=== PATIENT | female | born 1995 | race African-American/Black ===

== ENCOUNTER 2016-11-21 03:07 | Emergency (ER) | payer SELFPAY ==
[~2016-11-21] VITALS: Ht 152.4 cm; Wt 68.0 kg
[~2016-11-21 03:07] MED LIST: AMOXICILLIN500 MG PO; AMOXIL500 MG PO; ANAPROX DS550 MG PO; CIPRO500 MG PO; CLARITIN10 MG PO; COLACE1 SUP RC; FLAGYL500 MG PO; IRON325 M1 PO; KEFLEX500 M1 PO; KEFLEX500 MG PO; MACROBID100 M1 PO; MONISTAT 3 COMB1 KI1; MOTRIN800 MG PO; MULTI VITAMINS1 CT1 PO; Motrin,Rufen800 MG PO; NKHM; PHENERGAN W/DM120 ML PO; PNV-SELECT1 TAB PO
[2016-11-21 03:38] LABS: BILIRUBIN NEGATIVE (NEGATIVE); BLOOD NEGATIVE (NEGATIVE); CLARITY CLEAR (CLEAR); COLOR YELLOW (YELLOW); GLUCOSE NEGATIVE (NEGATIVE); KETONE NEGATIVE (NEGATIVE); LEUKO ESTERASE NEGATIVE (NEGATIVE); NITRITE NEGATIVE (NEGATIVE); PROTEIN NEGATIVE (NEGATIVE); SPECIFIC GRAVITY <= 1.005 (1.005-1.030); UROBILINOGEN 0.2 E.U./dl (0.2-1.0)
[2016-11-21 03:44] LABS: BASO % 0.2 % (0.0-1.0); EOS # 0.1 10*3/uL (0.0-0.4); EOS % 1.6 % (1.0-4.0); HEMATOCRIT 32.3 % (37.0-47.0); HEMOGLOBIN 11.1 g/dl (12.0-16.0); LYMPH # 2.5 10*3/uL (1.3-4.4); LYMPH % 28.9 % (27.0-41.0); MEAN CORPUSCULAR HGB 30.9 pg (27.0-31.0); MEAN CORPUSCULAR HGB CONC 34.4 g/dl (33.0-37.0); MEAN PLATELET VOLUME 11.2 fl (9.6-12.3); MONO # 0.6 10*3/uL (0.1-1.0); MONO % 7.1 % (3.0-9.0); NEUT # 5.4 10*3/uL (2.3-7.9); NEUT % 61.9 % (47.0-73.0); PLATELET COUNT AUTOMATED 170 10*3/uL (130-400); RED BLOOD COUNT 3.59 10*6/uL (4.10-5.10); RED CELL DISTRI WIDTH 12.9 % (0-14.5); WHITE BLOOD COUNT 8.8 10*3/uL (4.8-10.8)
[2016-11-21 03:44] LABS: BACTERIA TRACE; RBC 0-2 rbc/hpf (0-2); URINE REFLEX COMMENT NO (NO); WBC 0-2 wbc/hpf (0-5)
[2016-11-21 04:00] LABS: ALBUMIN 2.8 gm/dl (3.1-4.5); ALKALINE PHOSPHATASE 61 U/L (45-117); BILIRUBIN, TOTAL 0.2 mg/dl (0.2-1.0); BUN 4 mg/dl (7-24); CARBON DIOXIDE 20 mmol/L (21-32); CHLORIDE 107 mmol/L (98-107); EST GLOM FILT AFRICAN AMERICAN > 60 ml/min; GLUCOSE 112 mg/dL (65-99); POTASSIUM 3.5 mmol/L (3.5-5.1); SGOT/AST 14 IU/L (3-35); SGPT/ALT 13 U/L (12-78); SODIUM 140 mmol/L (136-145)
[2016-11-21] MEDS ORDERED: AMOXICILLIN500 M2 PO (04:42)
== END 2016-11-21 04:54 | disposition home or self-care (01) ==
LOC: ED 03:07
PROVIDERS: Emergency Medicine
DX: O99.512 Diseases of the respiratory system complicating pregnancy, second trimester (principal); J40 Bronchitis, not specified as acute or chronic; F17.200 Nicotine dependence, unspecified, uncomplicated; Z3A.26 26 weeks gestation of pregnancy

== ENCOUNTER 2017-04-15 14:07 | Emergency (ER) | payer MEDICAID ==
[~2017-04-15] VITALS: Wt 63.5 kg
[~2017-04-15 14:07] MED LIST changes: +AMOXICILLIN500 M2 PO
[2017-04-15 14:23] LABS: BILIRUBIN NEGATIVE (NEGATIVE); BLOOD 3+ (NEGATIVE); CLARITY CLEAR (CLEAR); COLOR YELLOW (YELLOW); GLUCOSE NEGATIVE (NEGATIVE); KETONE NEGATIVE (NEGATIVE); LEUKO ESTERASE NEGATIVE (NEGATIVE); NITRITE NEGATIVE (NEGATIVE); PH 6.5 (5.0-9.0); UROBILINOGEN 0.2 E.U./dl (0.2-1.0)
[2017-04-15 14:31] LABS: BACTERIA TRACE
[2017-04-15 14:45] LABS: BASO % 0.3 % (0.0-1.0); EOS # 0.2 10*3/uL (0.0-0.4); EOS % 2.3 % (1.0-4.0); HEMATOCRIT 39.6 % (37.0-47.0); HEMOGLOBIN 13.2 g/dl (12.0-16.0); LYMPH # 2.6 10*3/uL (1.3-4.4); LYMPH % 39.8 % (27.0-41.0); MEAN CELL VOLUME 91.2 fl (81.0-99.0); MEAN CORPUSCULAR HGB 30.4 pg (27.0-31.0); MEAN CORPUSCULAR HGB CONC 33.3 g/dl (33.0-37.0); MEAN PLATELET VOLUME 10.6 fl (9.6-12.3); MONO # 0.3 10*3/uL (0.1-1.0); MONO % 4.3 % (3.0-9.0); NEUT # 3.5 10*3/uL (2.3-7.9); NEUT % 53.1 % (47.0-73.0); PLATELET COUNT AUTOMATED 272 10*3/uL (130-400); RED BLOOD COUNT 4.34 10*6/uL (4.10-5.10); RED CELL DISTRI WIDTH 13.6 % (0-14.5); WHITE BLOOD COUNT 6.6 10*3/uL (4.8-10.8)
[2017-04-15 15:00] LABS: ALBUMIN 3.5 gm/dl (3.1-4.5); ALKALINE PHOSPHATASE 77 U/L (45-117); BUN 6 mg/dl (7-24); CHLORIDE 105 mmol/L (98-107); CREATININE 0.63 mg/dL (0.55-1.02); LIPASE 121 U/L (73-393); POTASSIUM 3.9 mmol/L (3.5-5.1); SGOT/AST 16 IU/L (3-35); SGPT/ALT 18 U/L (12-78); SODIUM 138 mmol/L (136-145); TOTAL PROTEIN 7.9 gm/dL (6.4-8.2)
[2017-04-15 15:04] LABS: B-hCG (QUALITATIVE) NEGATIVE (NEGATIVE)
== END 2017-04-15 17:04 | disposition home or self-care (01) ==
LOC: ED 14:07
PROVIDERS: Physician Assistant
DX: R10.9 Unspecified abdominal pain (principal); F17.200 Nicotine dependence, unspecified, uncomplicated

== ENCOUNTER 2017-06-06 17:43 | Emergency (ER) | payer MEDICAID ==
[~2017-06-06] VITALS: Ht 154.9 cm; Wt 59.0 kg
[2017-06-06] MEDS ORDERED: PROAIR HFA8.5 GM INH (19:17)
[2017-06-06] MEDS ORDERED: ALLEGRA-D 24 H1 EACH PO (19:17)
[2017-06-06] MEDS ORDERED: TESSALON PERLE100 M1 PO (19:17)
[2017-06-06] MEDS ORDERED: FLONASE ALLERG9.9 ML NAS (19:17)
== END 2017-06-06 19:20 | disposition home or self-care (01) ==
LOC: ED 17:43
DX: B34.9 Viral infection, unspecified (principal); F17.200 Nicotine dependence, unspecified, uncomplicated

== ENCOUNTER → 2017-06-11 | Outpatient (CLI) | payer OTHER ==
[~2017-06-11] MED LIST changes: +ALLEGRA-D 24 H1 EACH PO; +FLONASE ALLERG9.9 ML NAS; +PROAIR HFA8.5 GM INH; +TESSALON PERLE100 M1 PO
[2017-06-12 08:15] LABS: HIV 1+2 AB + HIV1 P24 AG Non Reactive (Non Reactive)
[2017-06-12 09:08] LABS: HEPATITIS B SURFACE AG Negative (Negative)
[2017-06-15 17:10] LABS: HSV 2 IGM AB <1:10 titer (<1:10); HSV I IGM ABS <1:10 titer (<1:10)
== END | disposition home or self-care (01) ==
LOC: LAB 12:48
PROVIDERS: Obstetrics & Gynecology
DX: A64 Unspecified sexually transmitted disease (principal)

== ENCOUNTER 2017-11-17 00:40 | Emergency (ER) | payer OTHER ==
[~2017-11-17] VITALS: Ht 154.9 cm; Wt 59.0 kg
[2017-11-17 01:03] LABS: BILIRUBIN NEGATIVE (NEGATIVE); BLOOD NEGATIVE (NEGATIVE); CLARITY CLEAR (CLEAR); COLOR YELLOW (YELLOW); GLUCOSE NEGATIVE (NEGATIVE); KETONE NEGATIVE (NEGATIVE); LEUKO ESTERASE NEGATIVE (NEGATIVE); NITRITE NEGATIVE (NEGATIVE); SPECIFIC GRAVITY 1.025 (1.005-1.030)
[2017-11-17 01:10] LABS: BACTERIA 2+; MUCOUS TRACE; WBC 0-2 wbc/hpf (0-5)
[2017-11-17 01:24] LABS: BASO % 0.3 % (0.0-1.0); EOS # 0.1 10*3/uL (0.0-0.4); EOS % 1.4 % (1.0-4.0); HEMATOCRIT 36.8 % (37.0-47.0); HEMOGLOBIN 11.8 g/dl (12.0-16.0); LYMPH # 3.7 10*3/uL (1.3-4.4); LYMPH % 40.6 % (27.0-41.0); MEAN CELL VOLUME 92.5 fl (81.0-99.0); MEAN CORPUSCULAR HGB 29.6 pg (27.0-31.0); MEAN CORPUSCULAR HGB CONC 32.1 g/dl (33.0-37.0); MEAN PLATELET VOLUME 10.7 fl (9.6-12.3); MONO # 0.5 10*3/uL (0.1-1.0); MONO % 5.5 % (3.0-9.0); NEUT # 4.8 10*3/uL (2.3-7.9); PLATELET COUNT AUTOMATED 248 10*3/uL (130-400); RED BLOOD COUNT 3.98 10*6/uL (4.10-5.10); WHITE BLOOD COUNT 9.2 10*3/uL (4.8-10.8)
[2017-11-17 01:42] LABS: ALBUMIN 3.4 gm/dl (3.1-4.5); ALKALINE PHOSPHATASE 76 U/L (45-117); BUN 13 mg/dl (7-24); CHLORIDE 106 mmol/L (98-107); CREATININE 0.69 mg/dL (0.55-1.02); LIPASE 122 U/L (73-393); POTASSIUM 3.8 mmol/L (3.5-5.1); SGOT/AST 12 IU/L (3-35); SGPT/ALT 12 U/L (12-78); SODIUM 138 mmol/L (136-145); TOTAL PROTEIN 7.1 gm/dL (6.4-8.2)
[2017-11-17] MEDS ORDERED: KETOROLAC10 MG PO (02:39)
== END 2017-11-17 02:38 | disposition home or self-care (01) ==
LOC: ED 00:40
PROVIDERS: Emergency Medicine Emergency Medical Services
DX: R10.2 Pelvic and perineal pain (principal); F17.200 Nicotine dependence, unspecified, uncomplicated; Z79.899 Other long term (current) drug therapy

== ENCOUNTER 2018-03-08 13:30 | Emergency (ER) | payer OTHER ==
[~2018-03-08] VITALS: Ht 152.4 cm; Wt 59.0 kg
--- NOTE | ~2018-03-08 | EKG ---
[place], [place] ELECTROCARDIOGRAM REPORT NAME: JONATHAN JO UNIT #: [id number] ROOM: DOCTOR: EPIPHANY DRAFT REPORT BIRTHDATE: [birth year] [facility] Test Date: 2018-03-08 Test Time: 14:28:10 Pat Name: JONATHAN JO Department: Room: Gender: F Professor Of Economics: Sana Mcgarry : 1995 Requested By: TAMMI CORONADO PA-C Order Number: [id number] Reading MD: Willi Montoya MD Measurements Intervals [place] Rate: 51 P: 12 AL: 132 QRS: 12 QRSD: 79 T: 25 QT: 416 QTc: 384 Interpretive Statements Sinus rhythm No previous ECG available for comparison Electronically Signed On 03-09-2018 4:16:38 PDT by Willi Montoya MD CM:EKGRPT:ELECTROCARDIOGRAM REPORT [id number] TAMMI CORONADO PA-C EPIPHANY DRAFT REPORT TAMMI CORONADO PA-C
[~2018-03-08 13:30] MED LIST changes: +KETOROLAC10 MG PO
[2018-03-08 14:30] LABS: BILIRUBIN NEGATIVE (NEGATIVE); BLOOD NEGATIVE (NEGATIVE); CLARITY CLEAR (CLEAR); COLOR YELLOW (YELLOW); GLUCOSE NEGATIVE (NEGATIVE); KETONE NEGATIVE (NEGATIVE); LEUKO ESTERASE TRACE (NEGATIVE); NITRITE NEGATIVE (NEGATIVE); SPECIFIC GRAVITY <= 1.005 (1.005-1.030); UROBILINOGEN 0.2 E.U./dl (0.2-1.0)
[2018-03-08 14:35] LABS: BACTERIA 2+; RBC 0-2 rbc/hpf (0-2)
[2018-03-08 14:46] LABS: BASO % 0.3 % (0.0-1.0); EOS # 0.1 10*3/uL (0.0-0.4); EOS % 2.2 % (1.0-4.0); HEMATOCRIT 37.3 % (37.0-47.0); HEMOGLOBIN 12.7 g/dl (12.0-16.0); LYMPH # 2.8 10*3/uL (1.3-4.4); LYMPH % 43.4 % (27.0-41.0); MEAN CELL VOLUME 91.2 fl (81.0-99.0); MEAN CORPUSCULAR HGB 31.1 pg (27.0-31.0); MEAN PLATELET VOLUME 10.6 fl (9.6-12.3); MONO # 0.4 10*3/uL (0.1-1.0); MONO % 5.8 % (3.0-9.0); NEUT # 3.1 10*3/uL (2.3-7.9); NEUT % 48.1 % (47.0-73.0); PLATELET COUNT AUTOMATED 252 10*3/uL (130-400); RED BLOOD COUNT 4.09 10*6/uL (4.10-5.10); RED CELL DISTRI WIDTH 12.6 % (0-14.5); WHITE BLOOD COUNT 6.3 10*3/uL (4.8-10.8)
[2018-03-08 15:02] LABS: ALBUMIN 3.7 gm/dl (3.1-4.5); ALKALINE PHOSPHATASE 64 U/L (45-117); BUN 5 mg/dl (7-24); CHLORIDE 110 mmol/L (98-107); CREATININE 0.61 mg/dL (0.55-1.02); POTASSIUM 3.7 mmol/L (3.5-5.1); SGOT/AST 14 IU/L (3-35); SGPT/ALT 17 U/L (12-78); SODIUM 141 mmol/L (136-145); TOTAL PROTEIN 7.9 gm/dL (6.4-8.2)
[2018-03-08 15:07] LABS: TROPONIN I < 0.015 ng/ml (<0.045)
[2018-03-08 16:04] LABS: URINE AMPHETAMINES < 1000 (1000ng/ml); URINE BARBITURATES < 200 (200ng/ml); URINE BENZODIAZEPINES > 200 (200ng/ml); URINE CANNABINOIDS (THC) > 50 (50ng/ml); URINE COCAINE > 300 (300ng/ml); URINE METHADONE < 300 (300ng/ml); URINE OPIATES < 300 (300ng/ml); URINE PHENCYCLIDINE < 25 (25ng/ml)
[2018-03-08] MEDS ORDERED: ATIVAN1 MG PO (16:23)
== END 2018-03-08 16:31 | disposition home or self-care (01) ==
LOC: ED 13:30
PROVIDERS: Physician Assistant
DX: F41.9 Anxiety disorder, unspecified (principal)

== ENCOUNTER 2018-12-28 18:18 | Emergency (ER) | payer OTHER ==
[~2018-12-28] VITALS: Ht 152.4 cm; Wt 54.4 kg
[~2018-12-28 18:18] MED LIST changes: +ATIVAN1 MG PO
[2018-12-28] MEDS ORDERED: ZYRTEC10 MG PO (19:36)
[2018-12-28] MEDS ORDERED: AMOXICILLIN500 M2 PO (19:36)
== END 2018-12-28 19:51 ==
LOC: ED 18:18
DX: J02.9 Acute pharyngitis, unspecified (principal); H92.03 Otalgia, bilateral; R51 Headache

== ENCOUNTER 2019-01-26 00:24 | Emergency (ER) | payer OTHER ==
[~2019-01-26] VITALS: Ht 152.4 cm; Wt 52.6 kg
[~2019-01-26 00:24] MED LIST changes: +ZYRTEC10 MG PO
[2019-01-26 01:00] LABS: BILIRUBIN NEGATIVE (NEGATIVE); BLOOD NEGATIVE (NEGATIVE); CLARITY SL CLOUDY (CLEAR); COLOR YELLOW (YELLOW); GLUCOSE NEGATIVE (NEGATIVE); KETONE TRACE (NEGATIVE); LEUKO ESTERASE NEGATIVE (NEGATIVE); NITRITE NEGATIVE (NEGATIVE); SPECIFIC GRAVITY 1.015 (1.005-1.030)
[2019-01-26 01:10] LABS: BACTERIA 1+
[2019-01-26] MEDS ORDERED: SEPTDS PO (01:13)
== END 2019-01-26 01:56 | disposition home or self-care (01) ==
LOC: ED 00:24
PROVIDERS: Student in an Organized Health Care Education/Training Program
DX: N39.0 Urinary tract infection, site not specified (principal)

== ENCOUNTER 2019-02-14 16:25 | Emergency (ER) | payer OTHER ==
[~2019-02-14] VITALS: Ht 152.4 cm; Wt 52.6 kg
[~2019-02-14 16:25] MED LIST changes: +SEPTDS PO
[2019-02-14 17:02] LABS: BILIRUBIN NEGATIVE (NEGATIVE); BLOOD NEGATIVE (NEGATIVE); CLARITY CLEAR (CLEAR); COLOR YELLOW (YELLOW); GLUCOSE NEGATIVE (NEGATIVE); KETONE NEGATIVE (NEGATIVE); LEUKO ESTERASE NEGATIVE (NEGATIVE); NITRITE NEGATIVE (NEGATIVE); SPECIFIC GRAVITY 1.015 (1.005-1.030)
[2019-02-14 17:19] LABS: BACTERIA TRACE; EPITHELIAL CELLS 31-40; WBC 0-2 wbc/hpf (0-5)
== END 2019-02-14 17:27 | disposition home or self-care (01) ==
LOC: ED 16:25
PROVIDERS: Nurse Practitioner Family
DX: Z20.2 Contact with and (suspected) exposure to infections with a predominantly sexual mode of transmission (principal)

== ENCOUNTER 2019-04-11 21:47 | Emergency (ER) | payer OTHER ==
[~2019-04-11] VITALS: Ht 152.4 cm; Wt 52.2 kg
--- NOTE | ~2019-04-11 | EKG ---
[place], [place] ELECTROCARDIOGRAM REPORT NAME: JONATHAN JO UNIT #: [id number] ROOM: DOCTOR: EPIPHANY DRAFT REPORT BIRTHDATE: [birth year] [facility] Test Date: 2019-04-11 Test Time: 22:11:52 Pat Name: JONATHAN JO Department: ER Room: 7 Gender: F [employer] Operator: Marck Weldon : 1995 Requested By: COURTNEY MOREJON DNP Order Number: [id number] Reading MD: Willi Montoya MD Measurements Intervals [place] Rate: 58 P: 21 NC: 132 QRS: 20 QRSD: 75 T: 35 QT: 381 QTc: 375 Interpretive Statements Sinus rhythm Compared to ECG 03/08/2018 14:28:10 No significant changes Electronically Signed On 04-12-2019 4:29:21 PST by Willi Montoya MD CM:EKGRPT:ELECTROCARDIOGRAM REPORT 0429 COURTNEY MOREJON DNP EPIPHANY DRAFT REPORT COURTNEY MOREJON DNP
[2019-04-11 22:28] LABS: BASO % 0.5 % (0.0-1.0); EOS # 0.1 10*3/uL (0.0-0.4); EOS % 1.3 % (1.0-4.0); HEMATOCRIT 36.2 % (37.0-47.0); HEMOGLOBIN 12.1 g/dl (12.0-16.0); LYMPH # 4.1 10*3/uL (1.3-4.4); LYMPH % 48.5 % (27.0-41.0); MEAN CELL VOLUME 93.8 fl (81.0-99.0); MEAN CORPUSCULAR HGB 31.3 pg (27.0-31.0); MEAN CORPUSCULAR HGB CONC 33.4 g/dl (33.0-37.0); MEAN PLATELET VOLUME 10.3 fl (9.6-12.3); MONO # 0.5 10*3/uL (0.1-1.0); NEUT # 3.7 10*3/uL (2.3-7.9); NEUT % 43.6 % (47.0-73.0); PLATELET COUNT AUTOMATED 263 10*3/uL (130-400); RED BLOOD COUNT 3.86 10*6/uL (4.10-5.10); RED CELL DISTRI WIDTH 12.7 % (0-14.5); WHITE BLOOD COUNT 8.5 10*3/uL (4.8-10.8)
[2019-04-11 22:49] LABS: ALBUMIN 3.4 gm/dl (3.1-4.5); ALKALINE PHOSPHATASE 77 U/L (45-117); BUN 8 mg/dl (7-24); CHLORIDE 109 mmol/L (98-107); CREATININE 0.69 mg/dL (0.55-1.02); POTASSIUM 3.5 mmol/L (3.5-5.1); SGOT/AST 14 IU/L (3-35); SGPT/ALT 15 U/L (12-78); SODIUM 139 mmol/L (136-145); TOTAL PROTEIN 7.1 gm/dL (6.4-8.2)
[2019-04-11 22:51] LABS: TROPONIN I < 0.015 ng/ml (<0.045)
== END 2019-04-11 23:14 | disposition home or self-care (01) ==
LOC: ED 21:47
PROVIDERS: Nurse Practitioner Family
DX: K21.9 Gastro-esophageal reflux disease without esophagitis (principal); M79.602 Pain in left arm; R07.9 Chest pain, unspecified; F41.9 Anxiety disorder, unspecified; F32.9 Major depressive disorder, single episode, unspecified

== ENCOUNTER 2019-05-15 08:54 | Emergency (ER) | payer OTHER ==
[~2019-05-15] VITALS: Ht 152.4 cm; Wt 56.2 kg
[2019-05-15 09:34] LABS: BILIRUBIN NEGATIVE (NEGATIVE); BLOOD NEGATIVE (NEGATIVE); CLARITY CLEAR (CLEAR); COLOR YELLOW (YELLOW); GLUCOSE NEGATIVE (NEGATIVE); KETONE NEGATIVE (NEGATIVE); LEUKO ESTERASE NEGATIVE (NEGATIVE); NITRITE NEGATIVE (NEGATIVE); PH 8.5 (5.0-9.0); UROBILINOGEN 0.2 E.U./dl (0.2-1.0)
[2019-05-15 09:42] LABS: BACTERIA TRACE; RBC 0-2 rbc/hpf (0-2); WBC 0-2 wbc/hpf (0-5)
[2019-05-15] MEDS ORDERED: ROBITUSSIN DM 105 ML PO (17:43)
[2019-05-15] MEDS ORDERED: PREDNISONE50 MG PO (17:43)
[2019-05-15] MEDS ORDERED: ZITHROMAX250 MG PO (17:43)
== END 2019-05-15 09:38 | disposition home or self-care (01) ==
LOC: ED 08:54
PROVIDERS: Emergency Medicine
DX: J06.9 Acute upper respiratory infection, unspecified (principal); K21.9 Gastro-esophageal reflux disease without esophagitis; Z88.8 Allergy status to other drugs, medicaments and biological substances

== ENCOUNTER 2019-05-15 17:06 | Emergency (ER) | payer OTHER ==
[~2019-05-15] VITALS: Wt 55.8 kg
[2019-05-15] MEDS ORDERED: ROBITUSSIN DM 105 ML PO (17:43)
[2019-05-15] MEDS ORDERED: ZITHROMAX250 MG PO (17:43)
[2019-05-15] MEDS ORDERED: PREDNISONE50 MG PO (17:43)
== END 2019-05-15 17:55 | disposition home or self-care (01) ==
LOC: ED 17:06
DX: J20.9 Acute bronchitis, unspecified (principal); F17.200 Nicotine dependence, unspecified, uncomplicated; Z88.8 Allergy status to other drugs, medicaments and biological substances

== ENCOUNTER → 2019-10-07 | Outpatient (CLI) | payer OTHER ==
[~2019-10-07] MED LIST changes: +PREDNISONE50 MG PO; +ROBITUSSIN DM 105 ML PO; +ZITHROMAX250 MG PO
== END | disposition home or self-care (01) ==
LOC: US 12:54
DX: O26.891 Other specified pregnancy related conditions, first trimester (principal); R10.2 Pelvic and perineal pain; Z3A.00 Weeks of gestation of pregnancy not specified

== ENCOUNTER 2020-07-16 14:57 | Emergency (ER) | payer OTHER ==
[~2020-07-16] VITALS: Wt 77.1 kg
[2020-07-16 15:51] LABS: BASO % 0.2 % (0.0-1.0); EOS # 0.2 10*3/uL (0.0-0.4); EOS % 1.4 % (1.0-4.0); LYMPH # 2.6 10*3/uL (1.3-4.4); LYMPH % 23.5 % (27.0-41.0); MEAN CELL VOLUME 92.5 fl (81.0-99.0); MEAN CORPUSCULAR HGB 29.5 pg (27.0-31.0); MEAN CORPUSCULAR HGB CONC 31.9 g/dl (33.0-37.0); MEAN PLATELET VOLUME 10.2 fl (9.6-12.3); MONO # 0.5 10*3/uL (0.1-1.0); MONO % 4.6 % (3.0-9.0); NEUT # 7.8 10*3/uL (2.3-7.9); NEUT % 69.9 % (47.0-73.0); PLATELET COUNT AUTOMATED 299 10*3/uL (130-400); RED BLOOD COUNT 4.54 10*6/uL (4.10-5.10); RED CELL DISTRI WIDTH 13.2 % (0-14.5); WHITE BLOOD COUNT 11.1 10*3/uL (4.8-10.8)
[2020-07-16 15:55] LABS: BILIRUBIN Negative (Negative); BLOOD Negative (Negative); CLARITY Clear (Clear); COLOR Yellow (Yellow); GLUCOSE Negative (Negative); KETONE Negative (Negative); LEUKO ESTERASE Trace (Negative); NITRITE Negative (Negative); SPECIFIC GRAVITY 1.015 (1.001-1.030); UROBILINOGEN 0.2 E.U./dl (0.0-1.0)
[2020-07-16 16:07] LABS: ALBUMIN 3.4 gm/dl (3.1-4.5); ALKALINE PHOSPHATASE 104 U/L (45-117); BUN 10 mg/dl (7-24); CHLORIDE 107 mmol/L (98-107); CREATININE 0.66 mg/dL (0.55-1.02); LIPASE 101 U/L (73-393); SGOT/AST 78 IU/L (3-35); SGPT/ALT 49 U/L (12-78); SODIUM 138 mmol/L (136-145)
[2020-07-16 16:11] LABS: BETA-HCG, QUANT < 1.0 mIU/mL (1-3)
[2020-07-16 16:21] LABS: PH 8.5 (4.5-8.0)
[2020-07-16 16:23] LABS: WBC 0-2 wbc/hpf (0-5)
[2020-07-16 16:24] LABS: BACTERIA TRACE
[2020-07-16 16:31] LABS: ACT PARTIAL THROMBO TIME 27.1 SECONDS (20.0-32.1); INTERNATIONAL NORM RATIO 0.9 (2.0-3.5)
[2020-07-16] MEDS ORDERED: PROTONIX40 MG PO (18:33)
[2020-07-16] MEDS ORDERED: CEFUROXIME AXE500 MG PO (18:33)
[2020-07-16] MEDS ORDERED: ZOFRAN4 MG PO (18:33)
== END 2020-07-16 18:41 | disposition home or self-care (01) ==
LOC: ED 14:57
PROVIDERS: Family Medicine
DX: R10.9 Unspecified abdominal pain (principal); Z88.8 Allergy status to other drugs, medicaments and biological substances; Z79.899 Other long term (current) drug therapy

== ENCOUNTER 2021-02-26 23:12 | Emergency (ER) | payer OTHER ==
[~2021-02-26] VITALS: Ht 152.4 cm; Wt 72.6 kg
[~2021-02-26 23:12] MED LIST changes: +CEFUROXIME AXE500 MG PO; +PROTONIX40 MG PO; +ZOFRAN4 MG PO
[2021-02-27 00:58] LABS: BILIRUBIN Negative (Negative); BLOOD Negative (Negative); CLARITY Turbid (Clear); COLOR Yellow (Yellow); GLUCOSE Negative (Negative); KETONE Negative (Negative); LEUKO ESTERASE 2+ (Negative); NITRITE Negative (Negative); SPECIFIC GRAVITY 1.025 (1.001-1.030)
[2021-02-27 01:07] LABS: PH 8.5 (4.5-8.0)
[2021-02-27 01:10] LABS: BACTERIA 2+; EPITHELIAL CELLS 16-20
[2021-02-27] MEDS ORDERED: AUGMENTIN 875875 MG PO (02:47)
== END 2021-02-27 03:01 | disposition home or self-care (01) ==
LOC: ED 23:12
PROVIDERS: Hospitalist
DX: J03.90 Acute tonsillitis, unspecified (principal); Z20.822 Contact with and (suspected) exposure to COVID-19; N39.0 Urinary tract infection, site not specified

== ENCOUNTER 2021-09-24 09:42 | Emergency (ER) | payer OTHER ==
[~2021-09-24] VITALS: Wt 63.5 kg
[~2021-09-24 09:42] MED LIST changes: +AUGMENTIN 875875 MG PO
[2021-09-24 10:27] LABS: BASO % 0.2 % (0.0-1.0); EOS # 0.1 10*3/uL (0.0-0.4); EOS % 1.4 % (1.0-4.0); HEMATOCRIT 36.4 % (37.0-47.0); LYMPH # 2.4 10*3/uL (1.3-4.4); LYMPH % 36.3 % (27.0-41.0); MEAN CELL VOLUME 89.9 fl (81.0-99.0); MEAN CORPUSCULAR HGB 29.9 pg (27.0-31.0); MEAN CORPUSCULAR HGB CONC 33.2 g/dl (33.0-37.0); MEAN PLATELET VOLUME 10.6 fl (9.6-12.3); MONO # 0.4 10*3/uL (0.1-1.0); MONO % 5.7 % (3.0-9.0); NEUT # 3.7 10*3/uL (2.3-7.9); NEUT % 56.2 % (47.0-73.0); PLATELET COUNT AUTOMATED 284 10*3/uL (130-400); RED BLOOD COUNT 4.05 10*6/uL (4.10-5.10); RED CELL DISTRI WIDTH 14.6 % (0-14.5); WHITE BLOOD COUNT 6.6 10*3/uL (4.8-10.8)
[2021-09-24 10:43] LABS: BUN 7 mg/dl (7-24); CHLORIDE 108 mmol/L (98-107); CREATININE 0.59 mg/dL (0.55-1.02); POTASSIUM 3.7 mmol/L (3.5-5.1); SODIUM 137 mmol/L (136-145)
== END 2021-09-24 11:41 | disposition home or self-care (01) ==
LOC: ED 09:42
PROVIDERS: Emergency Medicine
DX: O46.91 Antepartum hemorrhage, unspecified, first trimester (principal); Z3A.10 10 weeks gestation of pregnancy; Z88.8 Allergy status to other drugs, medicaments and biological substances; K21.9 Gastro-esophageal reflux disease without esophagitis

== ENCOUNTER 2022-10-10 17:46 | Emergency (ER) | payer OTHER ==
[~2022-10-10] VITALS: Ht 152.4 cm; Wt 63.5 kg
[2022-10-10 18:45] LABS: BILIRUBIN Negative (Negative); BLOOD Negative (Negative); CLARITY Clear (Clear); COLOR Yellow (Yellow); GLUCOSE Negative (Negative); KETONE Negative (Negative); LEUKO ESTERASE 2+ (Negative); NITRITE Negative (Negative); UROBILINOGEN 0.2 E.U./dl (0.0-1.0)
[2022-10-10 18:54] LABS: RBC 0-2 rbc/hpf (0-2)
[2022-10-10] MEDS ORDERED: METRONIDAZOLE500 M1 PO (19:17)
[2022-10-10] MEDS ORDERED: VIBRAMYCIN100 MG PO ×2 (19:21→19:24)
== END 2022-10-10 19:25 | disposition home or self-care (01) ==
LOC: ED 17:46
PROVIDERS: Physician Assistant
DX: Z20.2 Contact with and (suspected) exposure to infections with a predominantly sexual mode of transmission (principal); A59.01 Trichomonal vulvovaginitis; F41.9 Anxiety disorder, unspecified; F32.A Depression, unspecified; Z79.899 Other long term (current) drug therapy; Z88.8 Allergy status to other drugs, medicaments and biological substances; Z98.890 Other specified postprocedural states

== ENCOUNTER 2023-10-18 15:59 | Emergency (ER) | payer OTHER ==
[~2023-10-18] VITALS: Ht 154.9 cm; Wt 59.0 kg
[~2023-10-18 15:59] MED LIST changes: +METRONIDAZOLE500 M1 PO; +VIBRAMYCIN100 MG PO
[2023-10-18] MEDS ORDERED: LORazepam 1 MG TAB PO ONE (16:45)
[2023-10-18] MEDS ORDERED: SODIUM CHLORIDE 0.9% 1,000 ML IV ONE (16:45)
[2023-10-18 16:56] LABS: BASO % 0.2 % (0.0-1.0); EOS % 0.5 % (1.0-4.0); HEMATOCRIT 36.1 % (37.0-47.0); LYMPH # 2.3 10*3/uL (1.3-4.4); LYMPH % 27.2 % (27.0-41.0); MEAN CORPUSCULAR HGB 30.9 pg (27.0-31.0); MEAN CORPUSCULAR HGB CONC 33.2 g/dl (33.0-37.0); MEAN PLATELET VOLUME 10.1 fl (9.6-12.3); MONO # 0.4 10*3/uL (0.1-1.0); MONO % 4.5 % (3.0-9.0); NEUT # 5.7 10*3/uL (2.3-7.9); NEUT % 67.5 % (47.0-73.0); PLATELET COUNT AUTOMATED 303 10*3/uL (130-400); RED BLOOD COUNT 3.88 10*6/uL (4.10-5.10); RED CELL DISTRI WIDTH 12.3 % (0-14.5); WHITE BLOOD COUNT 8.4 10*3/uL (4.8-10.8)
[2023-10-18 17:13] LABS: BILIRUBIN Negative (Negative); BLOOD Negative (Negative); CLARITY Clear (Clear); COLOR Yellow (Yellow); GLUCOSE Negative (Negative); KETONE Trace (Negative); LEUKO ESTERASE Negative (Negative); NITRITE Negative (Negative); SPECIFIC GRAVITY <= 1.005 (1.001-1.030); UROBILINOGEN 0.2 E.U./dl (0.0-1.0)
[2023-10-18 17:15] LABS: BUN 5 mg/dl (9-23); CHLORIDE 106 mmol/L (98-107); POTASSIUM 3.5 mmol/L (3.4-5.1)
[2023-10-18 17:22] LABS: WBC 0-2 wbc/hpf (0-5)
== END 2023-10-18 18:00 | disposition home or self-care (01) ==
LOC: ED 15:59
PROVIDERS: Nurse Practitioner Family
DX: R55 Syncope and collapse (principal); F41.9 Anxiety disorder, unspecified; K21.9 Gastro-esophageal reflux disease without esophagitis; F32.A Depression, unspecified; Z88.8 Allergy status to other drugs, medicaments and biological substances; Z98.890 Other specified postprocedural states

== ENCOUNTER 2024-02-11 09:15 | Emergency (ER) | payer OTHER ==
[~2024-02-11] VITALS: Ht 152.4 cm; Wt 60.8 kg
[2024-02-11] MEDS ORDERED: BUSPIRONE HCL7.5 MG PO (09:38)
[2024-02-11] MEDS ORDERED: ARIPIPRAZOLE10 MG PO (09:38)
[2024-02-11] MEDS ORDERED: ACETAMINOPHEN 325 MG TAB PO ONE (09:45)
== END 2024-02-11 10:38 | disposition left against medical advice (07) ==
LOC: ED 09:15
DX: R51.9 Headache, unspecified (principal); M54.2 Cervicalgia; F41.9 Anxiety disorder, unspecified; K21.9 Gastro-esophageal reflux disease without esophagitis; F32.A Depression, unspecified; Z53.29 Procedure and treatment not carried out because of patient's decision for other reasons; Z88.8 Allergy status to other drugs, medicaments and biological substances; Z98.890 Other specified postprocedural states

== ENCOUNTER 2024-02-13 07:11 | Emergency (ER) | payer OTHER ==
[~2024-02-13] VITALS: Ht 152.4 cm; Wt 61.7 kg
[~2024-02-13 07:11] MED LIST changes: +ARIPIPRAZOLE10 MG PO; +BUSPIRONE HCL7.5 MG PO
[2024-02-13] MEDS ORDERED: Acetaminophen/Oxycodone 5 MG/325 MG TABLET PO ONE (07:45)
[2024-02-13] MEDS ORDERED: CYCLOBENZAPRINE10 MG PO (07:49)
[2024-02-13] MEDS ORDERED: MELOXICAM15 MG PO (07:49)
== END 2024-02-13 07:52 | disposition home or self-care (01) ==
LOC: ED 07:11
DX: S16.1XXA Strain of muscle, fascia and tendon at neck level, initial encounter (principal); S00.83XA Contusion of other part of head, initial encounter; F41.9 Anxiety disorder, unspecified; F32.A Depression, unspecified; Z88.8 Allergy status to other drugs, medicaments and biological substances; Z98.890 Other specified postprocedural states; Y08.89XA Assault by other specified means, initial encounter; Y93.89 Activity, other specified; Y92.89 Other specified places as the place of occurrence of the external cause; Y99.8 Other external cause status

== ENCOUNTER 2024-08-22 10:00 | Emergency (ER) | payer OTHER ==
[~2024-08-22] VITALS: Ht 152.4 cm; Wt 63.5 kg
[~2024-08-22 10:00] MED LIST changes: +CYCLOBENZAPRINE10 MG PO; +MELOXICAM15 MG PO
[2024-08-22] MEDS ORDERED: Acetaminophen/Oxycodone 5 MG/325 MG TABLET PO ONE (10:15)
== END 2024-08-22 10:38 | disposition home or self-care (01) ==
LOC: ED 10:00
DX: S16.1XXA Strain of muscle, fascia and tendon at neck level, initial encounter (principal); S09.90XA Unspecified injury of head, initial encounter; M25.511 Pain in right shoulder; F31.9 Bipolar disorder, unspecified; Z88.8 Allergy status to other drugs, medicaments and biological substances; Z79.899 Other long term (current) drug therapy; Z96.22 Myringotomy tube(s) status; V46.4XXA Person boarding or alighting a car injured in collision with other nonmotor vehicle, initial encounter; Y93.89 Activity, other specified; Y92.488 Other paved roadways as the place of occurrence of the external cause; Y99.8 Other external cause status

== ENCOUNTER 2024-10-28 08:45 | Emergency (ER) | payer OTHER ==
[~2024-10-28] VITALS: Ht 152.4 cm; Wt 67.2 kg
[2024-10-28] MEDS ORDERED: LORAZEPAM0.5 M1 PO (08:56)
[2024-10-28] MEDS ORDERED: LURASIDONE HCL40 MG PO (08:56)
[2024-10-28] MEDS ORDERED: VIBRAMYCIN100 MG PO (09:05)
[2024-10-28] MEDS ORDERED: cefTRIAXone Sodium 500 MG VIAL IM ONE (09:05)
[2024-10-28] MEDS ORDERED: metroNIDAZOLE 500 MG TAB PO ONE (09:05)
[2024-10-28 09:24] LABS: BILIRUBIN Negative (Negative); BLOOD Negative (Negative); CLARITY Clear (Clear); COLOR Yellow (Yellow); GLUCOSE Negative (Negative); KETONE Negative (Negative); LEUKO ESTERASE Negative (Negative); NITRITE Negative (Negative); SPECIFIC GRAVITY 1.015 (1.001-1.030)
[2024-10-28] MEDS ORDERED: Water, Sterile 10 ML VIAL ONE (09:34)
[2024-10-28 09:52] LABS: BACTERIA 2+; RBC 0-2 rbc/hpf (0-2); WBC 0-2 wbc/hpf (0-5)
== END 2024-10-28 09:31 | disposition home or self-care (01) ==
LOC: ED 08:45
PROVIDERS: Emergency Medicine
DX: Z20.2 Contact with and (suspected) exposure to infections with a predominantly sexual mode of transmission (principal); Z88.8 Allergy status to other drugs, medicaments and biological substances; Z79.899 Other long term (current) drug therapy

== ENCOUNTER 2025-04-06 11:15 | Emergency (ER) | payer OTHER ==
[~2025-04-06] VITALS: Wt 63.5 kg
[~2025-04-06 11:15] MED LIST changes: +LORAZEPAM0.5 M1 PO; +LURASIDONE HCL40 MG PO
[2025-04-06] MEDS ORDERED: Meloxicam 15 MG TAB PO ONE (11:40)
[2025-04-06 12:11] LABS: BILIRUBIN Negative (Negative); BLOOD Negative (Negative); CLARITY Clear (Clear); COLOR Yellow (Yellow); KETONE Negative (Negative); LEUKO ESTERASE Trace (Negative); NITRITE Negative (Negative); PH 6.0 (4.5-8.0); SPECIFIC GRAVITY 1.010 (1.001-1.030); UROBILINOGEN 0.2 E.U./dl (0.0-1.0)
[2025-04-06 12:35] LABS: BACTERIA 1+
[2025-04-06] MEDS ORDERED: METHOCARBAMOL500 M1 PO (13:28)
[2025-04-06] MEDS ORDERED: MELOXICAM15 MG PO (13:28)
[2025-04-06] MEDS ORDERED: METRONIDAZOLE500 M1 PO (13:28)
== END 2025-04-06 13:35 | disposition home or self-care (01) ==
LOC: ED 11:15
PROVIDERS: Nurse Practitioner Family
DX: S16.1XXA Strain of muscle, fascia and tendon at neck level, initial encounter (principal); R05.9 Cough, unspecified; M54.50 Low back pain, unspecified; M54.12 Radiculopathy, cervical region; Z20.2 Contact with and (suspected) exposure to infections with a predominantly sexual mode of transmission; Z88.8 Allergy status to other drugs, medicaments and biological substances; Z79.899 Other long term (current) drug therapy; Z96.22 Myringotomy tube(s) status; V89.2XXA Person injured in unspecified motor-vehicle accident, traffic, initial encounter; Y93.89 Activity, other specified; Y92.89 Other specified places as the place of occurrence of the external cause; Y99.8 Other external cause status

== ENCOUNTER → 2025-04-12 | Outpatient (CLI) | payer OTHER ==
[~2025-04-12] MED LIST changes: +METHOCARBAMOL500 M1 PO
[2025-04-12 12:16] LABS: MEAN CELL VOLUME 94.0 fl (81.0-99.0); MEAN CORPUSCULAR HGB 30.7 pg (27.0-31.0); MEAN PLATELET VOLUME 10.6 fl (9.6-12.3); NUCLEATED RED BLOOD CELL 0.0 % (0.0-0.0); NUCLEATED RED BLOOD CELL 0.0 10*3/uL (0.0-0.0); PLATELET COUNT AUTOMATED 279.0 10*3/uL (130-400); RED CELL DISTRI WIDTH 13.2 % (0-14.5)
[2025-04-12 12:50] LABS: BUN 5 mg/dl (9-23); CPK 80 U/L (34-171); FREE T4 1.22 ng/dl (0.89-1.76); LDL CHOLESTEROL 106 mg/dL (9-159); SGPT/ALT 15 U/L (5-49)
== END | disposition home or self-care (01) ==
LOC: LAB 11:35
PROVIDERS: ATTEND Family Medicine
DX: I10 Essential (primary) hypertension (principal); E78.00 Pure hypercholesterolemia, unspecified; E74.9 Disorder of carbohydrate metabolism, unspecified

== ENCOUNTER → 2025-04-17 | Outpatient (CLI) | payer OTHER | END | disposition home or self-care (01) | LOC: LAB 17:24 | PROVIDERS: ATTEND Family Medicine | DX: M25.50 Pain in unspecified joint (principal); M79.10 Myalgia, unspecified site; Z74.9 Problem related to care provider dependency, unspecified ==